=== PATIENT | female | born 2000 | race Caucasian/White ===

== ENCOUNTER 2020-01-13 20:48 | Emergency (ER) | payer OTHER ==
[2020-01-13] MEDS ORDERED: HYDROCODONE/ACETAMINOPHEN 5-325 MG TABLET PO ONE (21:33)
--- NOTE | 2020-01-13 21:33 | ER Document Report ---
HPI - HPI Patient complains to provider of: right knee pain Time Seen by Provider: 01/13/20 21:27 Context: 19-year-old female presents to the emergency room complaining of worsening chronic right knee pain that she has had for the past 3 years. Patient states she initially injured her knee in high school while wrestling. Patient states she initially went to physical therapy knee started to get better so she did not bother to continue. States tonight while walking the pain got more severe and her had a helper into the bedroom so that she could get dressed to come to the ER. States she has tried taking Tylenol and Motrin without relief. Denies any chance of . Associated Symptoms: None Exacerbated by: Movement, Walking Relieved by: Denies Similar symptoms previously: No Recently seen / treated by doctor: No - ROS Systems Reviewed and Negative: Yes All other systems reviewed and negative - CONSTITUTIONAL Constitutional: DENIES: Fever - NEURO Neurology: DENIES: Weakness - REPRODUCTIVE Reproductive: DENIES: : - MUSCULOSKELETAL Musculoskeletal: REPORTS: Extremity pain - DERM Skin Color: Normal Skin Problems: None Past Medical History - General Information source: Patient - Social History Smoking Status: Never Smoker Frequency of alcohol use: None Drug Abuse: None Family History: Reviewed & Not Pertinent - Medical History Medical History: Negative Vertical Provider Document - CONSTITUTIONAL Agree With Documented VS: Yes Exam Limitations: No Limitations General Appearance: No Apparent Distress - INFECTION CONTROL TRAVEL OUTSIDE OF THE [place] IN LAST 30 DAYS: No - HEENT HEENT: Atraumatic, Normocephalic - NECK Neck: Normal Inspection, Supple, Thyroid Normal - RESPIRATORY Respiratory: Breath Sounds Normal, No Respiratory Distress, Chest Non-Tender - CARDIOVASCULAR Cardiovascular: Regular Rate, Regular Rhythm, No Murmur - MUSCULOSKELETAL/EXTREMETIES Musculoskeletal/Extremeties: Tender - Tenderness noted on palpation to the distal patella. Painful range of motion with flexion extension. Negative anterior posterior drawer. Negative Diallo's, negative Earnest's. No ballottement noted. - NEURO Level of Consciousness: Awake, Alert Motor/Sensory: No Motor Deficit, No Sensory Deficit Deep Tendon Reflexes: 2+ Notes: Ambulatory with a steady gait. Neurovascularly intact. - DERM Integumentary: Warm, Dry, No Rash Course - Re-evaluation Re-evalutation: 01/13/20 23:09 Patient is resting comfortably she is currently pain-free. X-ray results were reviewed with patient and family. She was counseled on the importance of outpatient follow-up with a primary care physician and/or orthopedist for further evaluation and treatment of her chronic knee pain. On-call physician was provided. E force was reviewed okay for prescription. Patient was given a sixpack of [place] to go. Patient was given strict return to the emergency room guidelines. Return for any new or worsening symptoms. All questions were answered. Patient verbalized understanding and agrees with plan of care. 01/13/20 23:09 01/13/20 23:53 - Vital Signs Vital signs: Temp Pulse Resp BP Pulse Ox 98.1 F 86 15 114/80 100 01/13/20 21:04 01/13/20 21:04 01/13/20 21:04 01/13/20 21:04 01/13/20 21:04 - Diagnostic Test Radiology reviewed: Reports reviewed Discharge - Discharge Clinical Impression: Chronic pain of right knee Condition: Stable Disposition: HOME, SELF-CARE Instructions: Suspected Internal Knee Injury ([facility]) Additional Instructions: Rest, ice, elevate right knee. Take medications as prescribed. Outpatient follow-up with either your primary care physician or orthopedics as discussed. Return to the emergency room for any new or worsening symptoms. Forms: Return to Work Referrals: CLARA CALL MD [ACTIVE STAFF] - Follow up as needed
--- NOTE | 2020-01-13 22:29 | RADIOLOGY REPORT (SQ) ---
EXAM DESCRIPTION: XR KNEE 4 OR MORE VIEWS COMPLETED DATE/TME: 01/13/2020 21:32 CLINICAL HISTORY: 19 years, Female, pain EXAM DESCRIPTION: CLINICAL HISTORY: pain COMPARISON: None FINDINGS: 4 view(s) submitted. No fracture or dislocation is identified. Bone marrow attenuation is unremarkable. No radiopaque foreign body is identified. IMPRESSION: No acute fracture or dislocation.
[2020-01-13] MEDS ORDERED: HYDROCODONE/ACETAMINOPHEN 5-325 MG (6 TAB/ER DISP) PO PRN (23:12)
[2020-01-13 23:25] VITALS: BP 121/77
== END 2020-01-13 23:50 | disposition home or self-care (01) ==
LOC: ER 20:48
DX: G89.29 Other chronic pain (principal); M25.561 Pain in right knee
CPT/HCPCS: 99283